=== PATIENT | male | born 1955 | race Caucasian/White ===

== ENCOUNTER 2024-02-07 08:45 | Emergency (ER) | payer BC, MEDICAID ==
[~2024-02-07] VITALS: Ht 185.4 cm; Wt 74.6 kg
[~2024-02-07 08:45] MED LIST: LACT1CAP65 PO; NICO-687 TD; NO HOME MEDS
[2024-02-07 08:58] VITALS: TEMP 98.3
[2024-02-07] MEDS ORDERED: GOLYS PO (10:13)
[2024-02-07] MEDS: methylnaltrexone br 12mg/0.6ml inj***SubQ only SQ ONE (10:16)
[2024-02-07 10:19] VITALS: BP 113/77; PULSE 67; RESP 18; O2SAT 98
== END 2024-02-07 10:39 | disposition home or self-care (01) ==
LOC: ER 08:46
DX: K59.03 Drug induced constipation (principal); T40.0X5A Adverse effect of opium, initial encounter; Y92.89 Other specified places as the place of occurrence of the external cause; Z59.00 Homelessness unspecified; Z79.899 Other long term (current) drug therapy; Z56.0 Unemployment, unspecified
CPT/HCPCS: 74018; 96372; 99283; J2212